=== PATIENT | female | born 1975 | race Two or more races ===

== ENCOUNTER 2019-10-04 18:55 | Inpatient (IN) | payer SELFPAY ==
[~2019-10-04] VITALS: Ht 167.6 cm; Wt 88.5 kg
[2019-10-04] MEDS ORDERED: SODIUM CHLORIDE 0.9% 1,000 ML IV ONE (19:10)
[2019-10-04] MEDS ORDERED: HYDROmorphone 1 MG/ML, 1ML INJ ONE (19:17)
[2019-10-04] MEDS: HYDROmorphone 2 MG/ML, 1ML IVPush PRN (19:20)
[2019-10-04] MEDS ORDERED: PLEASE ENTER ALLERGIES MC SCH (19:30)
[2019-10-04] MEDS ORDERED: SODIUM CHLORIDE 0.9%, 500ML IVBOLUS ONE (19:30)
[2019-10-04] MEDS ORDERED: SODIUM CHLORIDE FLUSH 10ML SYR IVF ONE (19:30)
[2019-10-04 19:34] LABS: BASOPHILS # (AUTO) 0.02 x10^3/uL (0-0.1); BASOPHILS % (AUTO) 0 % (0-1); EOSINOPHILS % (AUTO) 0 % (1-7); LYMPHOCYTES # (AUTO) 0.56 x10^3/uL (1-3.4); LYMPHOCYTES % (AUTO) 3 % (22-44); MD NO; MEAN CORPUSCULAR HGB CONC 33.7 g/dL (32.4-35.8); MEAN CORPUSCULAR VOLUME 89.1 fL (80-100); MEAN PLATELET VOLUME 9.6 fL (7.4-10.4); MONOCYTES # (AUTO) 0.48 x10^3/uL (0.2-0.8); MONOCYTES % (AUTO) 3 % (2-9); NEUTROPHILS % (AUTO) 94 % (42-75); PLATELET COUNT 238 x10^3/uL (130-400); RED BLOOD COUNT 5.15 x10^6/uL (3.82-5.3); RED CELL DISTRIBUTION WIDTH 13.2 % (9.6-15.2)
[2019-10-04 19:38] LABS: INTERNATIONAL NORMALIZED RATIO 1.02 (0.93-1.1); PROTHROMBIN TIME 10.8 Seconds (9.6-11.5)
[2019-10-04 19:41] LABS: ALBUMIN 3.6 g/dL (3.4-5.0); ANION GAP 7 mmol/L (5-15); CHLORIDE 110 mmol/L (98-107)
[2019-10-04 19:48] LABS: ALANINE AMINOTRANSFERASE 214 U/L (12-78); ALKALINE PHOSPHATASE 70 U/L (45-117); BILIRUBIN,TOTAL 2.1 mg/dL (0.2-1.0); CHOL/HDL RATIO 3.7; CHOLESTEROL, TOTAL 163 mg/dL (140-239); CREATININE 0.85 mg/dL (0.55-1.02); HDL CHOL % 27 % (28-40); HDL CHOLESTEROL (DIRECT) 44 mg/dL (40-60); LDL CHOLESTEROL,CALCULATED 106 mg/dL (54-169); LDL/HDL RATIO 2.4 (0.5-3.0); TOTAL PROTEIN 6.9 g/dL (6.4-8.2); TRIGLYCERIDES 66 mg/dL (50-200); VLDL CHOLESTEROL 13 mg/dL (0-25)
--- NOTE | 2019-10-04 20:32 | NUR ---
PT BACK FROM MRI, AWAITING RESULT. PT RESTING WITH EYES CLOSED AT THIS TIME. RPT CALLED TO FLOOR, RN. AWAITING TRANSFER AFTER MRI READ.
[2019-10-04] MEDS ORDERED: FLU VACC QS2019-20 36MOS UP/PF 0.5 ML IM-VACC ONE (23:30)
[2019-10-05] MEDS: HYDROmorphone 2 MG/ML, 1ML IVPush PRN (00:07)
[2019-10-05] MEDS: LACTATED RINGERS 1,000 ML IV SCH ×3 (00:13→07:28)
[2019-10-05 01:05] VITALS: BP 117/79
[2019-10-05 05:34] LABS: BASOPHILS # (AUTO) 0.01 x10^3/uL (0-0.1); BASOPHILS % (AUTO) 0 % (0-1); EOSINOPHILS # (AUTO) 0.12 x10^3/uL (0-0.4); EOSINOPHILS % (AUTO) 1 % (1-7); LYMPHOCYTES % (AUTO) 5 % (22-44); MD NO; MEAN CORPUSCULAR HEMOGLOBIN 29.7 pg (27.0-34.8); MEAN CORPUSCULAR HGB CONC 33.5 g/dL (32.4-35.8); MEAN CORPUSCULAR VOLUME 88.6 fL (80-100); MEAN PLATELET VOLUME 9.5 fL (7.4-10.4); MONOCYTES # (AUTO) 0.72 x10^3/uL (0.2-0.8); MONOCYTES % (AUTO) 5 % (2-9); NEUTROPHILS # (AUTO) 13.11 x10^3/uL (1.8-6.8); NEUTROPHILS % (AUTO) 89 % (42-75); PLATELET COUNT 196 x10^3/uL (130-400); RED BLOOD COUNT 4.88 x10^6/uL (3.82-5.3); RED CELL DISTRIBUTION WIDTH 13.2 % (9.6-15.2)
[2019-10-05 05:40] LABS: CHLORIDE 112 mmol/L (98-107)
[2019-10-05 05:50] LABS: ALANINE AMINOTRANSFERASE 143 U/L (12-78); ALBUMIN 2.9 g/dL (3.4-5.0); ALKALINE PHOSPHATASE 59 U/L (45-117); ANION GAP 7 mmol/L (5-15); BILIRUBIN,TOTAL 1.9 mg/dL (0.2-1.0); CALCIUM 7.5 mg/dL (8.5-10.1); CREATININE 0.62 mg/dL (0.55-1.02); TOTAL PROTEIN 5.8 g/dL (6.4-8.2)
[2019-10-05 07:25] VITALS: BP 129/82
[2019-10-05] MEDS: morphine SULFATE 10 MG/ML, 1ML IVPush PRN ×2 (07:27→11:10)
[2019-10-05] MEDS: HEPARIN 5,000 UNITS/ML, 1ML SQ SCH ×2 (08:00→16:00)
[2019-10-05 08:23] LABS: CHOLESTEROL, TOTAL 134 mg/dL (140-239); TRIGLYCERIDES 82 mg/dL (50-200); VLDL CHOLESTEROL 16 mg/dL (0-25)
[2019-10-05 08:25] LABS: CHOL/HDL RATIO 4.5; HDL CHOL % 22 % (28-40); HDL CHOLESTEROL (DIRECT) 30 mg/dL (40-60); LDL CHOLESTEROL,CALCULATED 88 mg/dL (54-169); LDL/HDL RATIO 2.9 (0.5-3.0)
[2019-10-05] MEDS: SODIUM CHLORIDE 0.9% 1,000 ML IV SCH ×2 (11:27→13:46)
[2019-10-05 13:01] VITALS: BP 118/69
[2019-10-05] MEDS: ACETAMINOPHEN 325 MG TABLET PO PRN ×2 (13:45→20:41)
[2019-10-05 20:07] VITALS: BP 122/78
[2019-10-06] MEDS: LACTATED RINGERS 1,000 ML IV SCH ×2 (00:06→05:13)
[2019-10-06 01:11] VITALS: BP 101/68
[2019-10-06 05:30] LABS: BASOPHILS # (AUTO) 0.01 x10^3/uL (0-0.1); BASOPHILS % (AUTO) 0 % (0-1); EOSINOPHILS # (AUTO) 0.05 x10^3/uL (0-0.4); EOSINOPHILS % (AUTO) 0 % (1-7); LYMPHOCYTES # (AUTO) 1.09 x10^3/uL (1-3.4); LYMPHOCYTES % (AUTO) 6 % (22-44); MD NO; MEAN CORPUSCULAR HEMOGLOBIN 29.7 pg (27.0-34.8); MEAN CORPUSCULAR HGB CONC 33.4 g/dL (32.4-35.8); MEAN CORPUSCULAR VOLUME 88.8 fL (80-100); MEAN PLATELET VOLUME 9.4 fL (7.4-10.4); MONOCYTES # (AUTO) 0.95 x10^3/uL (0.2-0.8); MONOCYTES % (AUTO) 5 % (2-9); NEUTROPHILS # (AUTO) 15.57 x10^3/uL (1.8-6.8); NEUTROPHILS % (AUTO) 88 % (42-75); PLATELET COUNT 189 x10^3/uL (130-400); RED BLOOD COUNT 4.56 x10^6/uL (3.82-5.3); RED CELL DISTRIBUTION WIDTH 13.1 % (9.6-15.2)
[2019-10-06 05:40] LABS: ALBUMIN 2.7 g/dL (3.4-5.0); ANION GAP 5 mmol/L (5-15); CALCIUM 7.8 mg/dL (8.5-10.1); CHLORIDE 106 mmol/L (98-107)
[2019-10-06 05:43] LABS: ALANINE AMINOTRANSFERASE 81 U/L (12-78); ALKALINE PHOSPHATASE 58 U/L (45-117); BILIRUBIN,TOTAL 3.2 mg/dL (0.2-1.0); CREATININE 0.55 mg/dL (0.55-1.02)
[2019-10-06] MEDS: HEPARIN 5,000 UNITS/ML, 1ML SQ SCH ×3 (07:43→15:54)
[2019-10-06 07:59] VITALS: BP 106/70
[2019-10-06] MEDS: METRONIDAZOLE PMX 500MG/100ML 100 ML IV SCH ×3 (08:11→19:56)
[2019-10-06] MEDS: ACETAMINOPHEN 325 MG TABLET PO PRN ×2 (09:16→19:56)
[2019-10-06] MEDS: CEFTRIAXONE PMX 1GM/50ML 50 ML IV SCH (09:17)
[2019-10-06 13:30] LABS: MICROSCOPIC INDICATED
[2019-10-06 13:58] VITALS: BP 109/74
[2019-10-06 19:24] VITALS: BP 116/75
[2019-10-07] MEDS: LACTATED RINGERS 1,000 ML IV SCH ×3 (00:08→22:38)
[2019-10-07] MEDS: METRONIDAZOLE PMX 500MG/100ML 100 ML IV SCH ×4 (02:08→19:36)
[2019-10-07 02:09] VITALS: BP 106/70
[2019-10-07 06:55] LABS: BASOPHILS # (AUTO) 0.05 x10^3/uL (0-0.1); BASOPHILS % (AUTO) 0 % (0-1); EOSINOPHILS # (AUTO) 0.04 x10^3/uL (0-0.4); EOSINOPHILS % (AUTO) 0 % (1-7); LYMPHOCYTES # (AUTO) 0.96 x10^3/uL (1-3.4); LYMPHOCYTES % (AUTO) 6 % (22-44); MD NO; MEAN CORPUSCULAR HGB CONC 33.8 g/dL (32.4-35.8); MEAN CORPUSCULAR VOLUME 88.8 fL (80-100); MEAN PLATELET VOLUME 9.2 fL (7.4-10.4); MONOCYTES # (AUTO) 0.99 x10^3/uL (0.2-0.8); MONOCYTES % (AUTO) 6 % (2-9); NEUTROPHILS # (AUTO) 14.19 x10^3/uL (1.8-6.8); NEUTROPHILS % (AUTO) 87 % (42-75); PLATELET COUNT 185 x10^3/uL (130-400); RED BLOOD COUNT 4.41 x10^6/uL (3.82-5.3)
[2019-10-07 07:07] LABS: ALANINE AMINOTRANSFERASE 54 U/L (12-78); ALBUMIN 2.6 g/dL (3.4-5.0); ANION GAP 6 mmol/L (5-15); CALCIUM 7.8 mg/dL (8.5-10.1); CHLORIDE 106 mmol/L (98-107)
[2019-10-07 07:10] LABS: ALKALINE PHOSPHATASE 64 U/L (45-117); BILIRUBIN,TOTAL 2.1 mg/dL (0.2-1.0); TOTAL PROTEIN 6.2 g/dL (6.4-8.2)
[2019-10-07 07:56] VITALS: BP 100/66
[2019-10-07] MEDS: HEPARIN 5,000 UNITS/ML, 1ML SQ SCH ×3 (08:00→16:00)
[2019-10-07] MEDS ORDERED: POTASSIUM CHLORIDE 40 MEQ in SODIUM CHLORIDE 0.9% 500 ML IV ONE (08:30)
[2019-10-07] MEDS: ACETAMINOPHEN 325 MG TABLET PO PRN ×2 (08:41→19:36)
[2019-10-07] MEDS: CEFTRIAXONE PMX 1GM/50ML 50 ML IV SCH (10:59)
[2019-10-07 12:58] VITALS: BP 120/81
[2019-10-07] MEDS: OXYcodone/APAP 5/325MG TABLET PO PRN ×2 (13:35→22:45)
[2019-10-07 18:55] VITALS: BP 109/74
[2019-10-08 00:28] VITALS: BP 103/65
[2019-10-08] MEDS: METRONIDAZOLE PMX 500MG/100ML 100 ML IV SCH ×4 (02:08→21:36)
[2019-10-08 05:05] LABS: ALBUMIN 2.6 g/dL (3.4-5.0); ANION GAP 8 mmol/L (5-15); CALCIUM 7.7 mg/dL (8.5-10.1); CHLORIDE 107 mmol/L (98-107)
[2019-10-08 05:08] LABS: ALANINE AMINOTRANSFERASE 38 U/L (12-78); ALKALINE PHOSPHATASE 65 U/L (45-117); BILIRUBIN,TOTAL 1.1 mg/dL (0.2-1.0); CREATININE 0.48 mg/dL (0.55-1.02); TOTAL PROTEIN 6.2 g/dL (6.4-8.2)
[2019-10-08 05:10] LABS: BASOPHILS # (AUTO) 0.05 x10^3/uL (0-0.1); BASOPHILS % (AUTO) 0 % (0-1); EOSINOPHILS # (AUTO) 0.12 x10^3/uL (0-0.4); EOSINOPHILS % (AUTO) 1 % (1-7); LYMPHOCYTES # (AUTO) 0.99 x10^3/uL (1-3.4); LYMPHOCYTES % (AUTO) 7 % (22-44); MD NO; MEAN CORPUSCULAR HEMOGLOBIN 29.5 pg (27.0-34.8); MEAN CORPUSCULAR HGB CONC 32.8 g/dL (32.4-35.8); MEAN CORPUSCULAR VOLUME 89.8 fL (80-100); MEAN PLATELET VOLUME 8.6 fL (7.4-10.4); MONOCYTES # (AUTO) 0.95 x10^3/uL (0.2-0.8); MONOCYTES % (AUTO) 7 % (2-9); NEUTROPHILS # (AUTO) 11.53 x10^3/uL (1.8-6.8); NEUTROPHILS % (AUTO) 85 % (42-75); PLATELET COUNT 238 x10^3/uL (130-400); RED BLOOD COUNT 4.32 x10^6/uL (3.82-5.3); RED CELL DISTRIBUTION WIDTH 13.1 % (9.6-15.2)
[2019-10-08] MEDS: LACTATED RINGERS 1,000 ML IV SCH ×2 (05:59→21:36)
[2019-10-08] MEDS ORDERED: POTASSIUM CHLORIDE 40 MEQ in SODIUM CHLORIDE 0.9% 500 ML IV ONE (08:00)
[2019-10-08 08:38] VITALS: BP 110/74
[2019-10-08] MEDS: HEPARIN 5,000 UNITS/ML, 1ML SQ SCH ×2 (09:49)
[2019-10-08] MEDS ORDERED: ONDANSETRON 2MG/ML, 2ML ONE (10:54)
[2019-10-08] MEDS ORDERED: DEXAMETHASONE 4 MG/ML, 1ML ONE (10:54)
[2019-10-08] MEDS ORDERED: SUGAMMADEX 200 MG/2 ML IVPush ONE (10:54)
[2019-10-08] MEDS ORDERED: KETOROLAC 30 MG/1 ML ONE (10:54)
[2019-10-08] MEDS ORDERED: PROPOFOL 10 MG/ML, 20ML ONE (10:54)
[2019-10-08] MEDS ORDERED: ROCURONIUM 10MG/ML,5ML ONE (10:54)
[2019-10-08] MEDS ORDERED: METOPROLOL 1 MG/ML, 5ML ONE (10:54)
[2019-10-08] MEDS: CEFTRIAXONE PMX 1GM/50ML 50 ML IV SCH (11:16)
[2019-10-08 14:55] VITALS: BP 110/73
[2019-10-08 15:01] LABS: HCG UR SG 1.022 (1.003-1.030)
[2019-10-08] MEDS ORDERED: MIDAZOLAM 1 MG/ML, 2ML ONE (15:39)
[2019-10-08] MEDS ORDERED: FENTANYL PF 250 MCG/5ML ONE (15:39)
[2019-10-08] MEDS ORDERED: EPINEPHRINE 1 MG/ML, 1ML ONE (15:39)
[2019-10-08] MEDS ORDERED: BUPIVACAINE/PF 0.5% ONE (15:39)
[2019-10-08] MEDS ORDERED: MEPERIDINE/PF 50 MG/ML ONE (16:50)
[2019-10-08] MEDS ORDERED: PROMETHAZINE 25 MG/ML, 1ML IV PRN (17:00)
[2019-10-08] MEDS ORDERED: FENTANYL PF 100 MCG/2ML IV PRN (17:00)
[2019-10-08] MEDS ORDERED: MEPERIDINE/PF 25MG/ML,1ML IVPush PRN (17:00)
[2019-10-08] MEDS ORDERED: HYDROmorphone 2 MG/ML, 1ML IVPush PRN (17:00)
[2019-10-08] MEDS ORDERED: hydrALAzine 20 MG/ML, 1ML IV PRN (17:00)
[2019-10-08] MEDS ORDERED: OXYcodone 5 MG/5 ML ORAL.SOL UDC PO PRN (17:00)
[2019-10-08] MEDS ORDERED: OMNIPAQUE 350 MG/ML, 50 ML BOTTLE ONE (18:15)
[2019-10-08 21:21] VITALS: BP 115/82
[2019-10-09 00:29] VITALS: BP 113/77
[2019-10-09] MEDS: METRONIDAZOLE PMX 500MG/100ML 100 ML IV SCH (03:02)
[2019-10-09 04:31] VITALS: BP 109/75
[2019-10-09 05:18] LABS: BASOPHILS % (AUTO) 0 % (0-1); EOSINOPHILS # (AUTO) 0.05 x10^3/uL (0-0.4); EOSINOPHILS % (AUTO) 1 % (1-7); LYMPHOCYTES # (AUTO) 0.46 x10^3/uL (1-3.4); LYMPHOCYTES % (AUTO) 5 % (22-44); MD NO; MEAN CORPUSCULAR HGB CONC 33.8 g/dL (32.4-35.8); MEAN CORPUSCULAR VOLUME 88.8 fL (80-100); MEAN PLATELET VOLUME 9.1 fL (7.4-10.4); MONOCYTES # (AUTO) 0.32 x10^3/uL (0.2-0.8); MONOCYTES % (AUTO) 3 % (2-9); NEUTROPHILS # (AUTO) 8.79 x10^3/uL (1.8-6.8); NEUTROPHILS % (AUTO) 91 % (42-75); PLATELET COUNT 250 x10^3/uL (130-400); RED BLOOD COUNT 4.05 x10^6/uL (3.82-5.3); RED CELL DISTRIBUTION WIDTH 13.1 % (9.6-15.2)
[2019-10-09 05:19] LABS: ALANINE AMINOTRANSFERASE 59 U/L (12-78); ALBUMIN 2.5 g/dL (3.4-5.0); ANION GAP 5 mmol/L (5-15); CALCIUM 7.9 mg/dL (8.5-10.1); CHLORIDE 107 mmol/L (98-107)
[2019-10-09 05:21] LABS: ALKALINE PHOSPHATASE 76 U/L (45-117); BILIRUBIN,TOTAL 0.6 mg/dL (0.2-1.0); TOTAL PROTEIN 6.2 g/dL (6.4-8.2)
[2019-10-09] MEDS ORDERED: HEPARIN 5,000 UNITS/ML, 1ML SQ SCH (05:30)
[2019-10-09 08:31] VITALS: BP 115/63
[2019-10-09] MEDS ORDERED: AMOXICILLIN/CLAV 875-125MG TABLET PO SCH (09:00)
[2019-10-09] MEDS ORDERED: AMOX1TAB12 PO (11:34)
[2019-10-09 12:15] VITALS: BP 106/73
[2019-10-09] MEDS ORDERED: DOCU-131 PO (13:30)
[2019-10-09] MEDS ORDERED: HYDR-3240 PO (13:30)
[2019-10-09] MEDS ORDERED: ONDA4TAB7 PO (13:31)
== END 2019-10-09 14:24 | disposition home or self-care (01) | DRG 417 ==
LOC: ED 19:33 → EDIP 19:35 → 3N 20:54 → 4NE 10-08 19:30 → DCLOUNGE 10-09 14:09
PROVIDERS: ADMIT Family Medicine; ATTEND Internal Medicine
PROC: BF121ZZ Fluoroscopy of Gallbladder using Low Osmolar Contrast (ICD-10-PCS; 2019-10-08)
PROC: 0FT44ZZ Resection of Gallbladder, Percutaneous Endoscopic Approach (ICD-10-PCS; principal; 2019-10-08 17:00)
DX: K80.20 Calculus of gallbladder without cholecystitis without obstruction (principal); K85.10 Biliary acute pancreatitis without necrosis or infection; E87.1 Hypo-osmolality and hyponatremia; K92.0 Hematemesis; E87.2 Acidosis; E87.6 Hypokalemia; K59.00 Constipation, unspecified; Z83.3 Family history of diabetes mellitus
CPT/HCPCS: 36415; 74300; 99285; S0020; 74181; 80053; 80061; 80307; 81001; 81025; 83605; 83615; 83690; 85025; 85610; 87040; 88304; 90686; G0378; J0171; J0696; J1100; J1170; J1644; J1885; J2175; J2250; J2405; J2704; J3010; J3480; Q9967; J2270; J7030; J7040; J7120